=== PATIENT | male | born 1990 | race Caucasian/White ===

== ENCOUNTER 2017-03-16 15:27 | Emergency (ER) | payer OTHER ==
[~2017-03-16 15:27] MED LIST: HYDR-3533 PO; TAMS0.4C67 PO
[2017-03-16 15:29] VITALS: BP 146/93; PULSE 69; RESP 18; TEMP 98.9; O2SAT 99
--- NOTE | 2017-03-16 15:58 | PD ---
HPI Chief Complaint: ENT Complaint Time Seen by Provider: 15:40 Travel History International Travel<30 days: No Contact w/Intl Traveler<30days: No Traveled to known affect area: No History of Present Illness HPI 27-year-old male presents to emergency department for left ear pain since about noon today. Patient states that today he was using his finger and a paper towel to dig into his ear at the onset of this discomfort. Patient states his pain is located in the inside and outside, inferior portion of his ear and radiates to his neck described as mild and constant. Patient states that his hearing was slightly muffled when the pain first started but now he is able to hear normally. Patient states he has tinnitus as well. Patient denies history of ear infections. Denies fever, chills, nausea, vomiting or diarrhea. Denies chronic medical issues or chronic medication use. PFSH Past Medical History Diminished Hearing: No Social History Alcohol Use: No Tobacco Use: No Substance Use: No Allergies-Medications (Allergen,Severity, Reaction): Coded Allergies: No Known Allergies (Unverified , 01/13/16) Reported Meds & Prescriptions Reported Meds & Active Scripts Active Amoxicillin 500 Mg Tab 500 Mg PO TID 7 Days Review of Systems Except as stated in HPI: all other systems reviewed are Neg Physical Exam Narrative GENERAL: Well-developed well-nourished in no apparent distress, conversing normally SKIN: Focused skin assessment warm/dry. HEAD: Atraumatic. Normocephalic. EYES: Pupils equal and round. No scleral icterus. No injection or drainage. ENT: No nasal bleeding or discharge. Mucous membranes pink and moist. EARS: Bilateral pinnae and external canals appear within normal limits. Right tympanic membrane without erythema, dullness or perforation. Left tympanic membrane with erythema, dullness. No evidence of perforation. Serous fluid present behind tympanic membrane. NECK: Trachea midline. No JVD. No lymphadenopathy. Mild TTP to the left upper cervical chain. MUSCULOSKELETAL: No obvious deformities. No clubbing. No cyanosis. No edema. NEUROLOGICAL: Awake and alert. No obvious cranial nerve deficits. Motor grossly within normal limits. Normal speech. PSYCHIATRIC: Appropriate mood and affect; insight and judgment normal. Data Data Last Documented VS Vital Signs Date Time Temp Pulse Resp B/P (MAP) Pulse Ox O2 Delivery O2 Flow Rate FiO2 03/16/17 15:29 98.9 69 18 146/93 (110) 99 Room Air Orders Orders Ed Discharge Order (03/16/17 16:00) MDM Medical Decision Making Medical Screen Exam Complete: Yes Emergency Medical Condition: Yes Differential Diagnosis Left otitis media, otitis externa, perforated tympanic membrane, upper respiratory infection Narrative Course 27-year-old male presents to emergency department for left ear pain since about noon today. Patient states that today he was using his finger and a paper towel to dig into his ear at the onset of this discomfort. Patient states his pain is located in the inside and outside, inferior portion of his ear and radiates to his neck described as mild and constant. Patient states that his hearing was slightly muffled when the pain first started but now he is able to hear normally. Patient states he has tinnitus as well. Patient denies history of ear infections. Denies fever, chills, nausea, vomiting or diarrhea. Denies chronic medical issues or chronic medication use. Vital signs stable Physical exam consistent with otitis media versus tympanic membrane rupture. Difficulty assessing the entire membrane secondary to unusual canal anatomy present in both ears. No evidence of diminished hearing. Patient will be treated with amoxicillin. Concern for developing otitis media. Patient advised to follow up with [facility] within 1 week. Advised patient to follow up with distance learning coordinator for further evaluation of his ear. Advised to avoid foreign objects in the left ear. Patient states that he understands and will comply the importance follow-up. Diagnosis Primary Impression: Otitis media Qualified Codes: H65.02 - Acute serous otitis media, left ear Referrals: [facility]ist Patient Instructions: Ear Infection (ED), General Instructions Additional Instructions: Follow up with [facility] within 1 week. I recommend following up with an distance learning coordinator for evaluation of your left ear. Take all antibiotics as prescribed. You may use Tylenol or Motrin per package instructions for ear pain. I recommend avoiding [id number] eardrops. If your symptoms persist or worsen return to the emergency department. Scripts Amoxicillin (Amoxicillin) 500 Mg Tab 500 MG PO TID for Infection for 7 Days, TAB 0 Refills Prov: Lottie Murphy MD 03/16/17 Disposition: 01 DISCHARGE HOME Condition: Stable Yaritza Mcgee Mar 16, 2017 15:58
[2017-03-16] MEDS ORDERED: AMOX500T PO (15:59)
== END 2017-03-16 16:13 | disposition home or self-care (01) ==
LOC: NEPK 15:27
DX: H66.92 Otitis media, unspecified, left ear (principal); M54.2 Cervicalgia
CPT/HCPCS: 99283